=== PATIENT | female | born 1960 | race Caucasian/White ===

== ENCOUNTER 2017-07-19 12:53 | Emergency (ER) | payer OTHER ==
[~2017-07-19] VITALS: Ht 167.6 cm; Wt 74.8 kg
[~2017-07-19 12:53] MED LIST: CELEXA40 MG; METFORMIN HCL500 MG PO; NAPROSYN500 MG PO; NORCO 5-325 TA1 EACH PO; PERCOCET 5-3251 EACH PO; [UNRECOGNIZED DRUG - REMARK]
[2017-07-19] MEDS ORDERED: NORCO 5-325 TA1 EACH PO (13:27)
[2017-07-19 14:38] VITALS: BP 129/93
== END 2017-07-19 14:38 | disposition home or self-care (01) ==
LOC: ER 12:53
DX: M25.551 Pain in right hip (principal); M25.552 Pain in left hip; M54.5 Low back pain; E11.9 Type 2 diabetes mellitus without complications; F17.210 Nicotine dependence, cigarettes, uncomplicated; Z96.643 Presence of artificial hip joint, bilateral; W18.39XA Other fall on same level, initial encounter; Y93.89 Activity, other specified; Y92.89 Other specified places as the place of occurrence of the external cause; Y99.8 Other external cause status

== ENCOUNTER 2021-03-27 18:54 | Emergency (ER) | payer OTHER ==
[~2021-03-27] VITALS: Ht 165.1 cm; Wt 78.5 kg
[2021-03-27 19:02] VITALS: BP 118/83
[2021-03-27] MEDS ORDERED: PREDNISONE 10 M10 M1 PO (19:21)
== END 2021-03-27 19:40 | disposition home or self-care (01) ==
LOC: ER 18:54
DX: L23.7 Allergic contact dermatitis due to plants, except food (principal); F17.210 Nicotine dependence, cigarettes, uncomplicated; E11.9 Type 2 diabetes mellitus without complications; Z96.643 Presence of artificial hip joint, bilateral

== ENCOUNTER 2021-05-28 12:45 | Emergency (ER) | payer OTHER ==
[~2021-05-28] VITALS: Ht 167.6 cm; Wt 77.1 kg
[~2021-05-28 12:45] MED LIST changes: +PREDNISONE 10 M10 M1 PO
[2021-05-28 12:58] VITALS: BP 139/86
== END 2021-05-28 13:55 | disposition home or self-care (01) ==
LOC: ER 12:45
DX: U07.1 COVID-19 (principal); E11.9 Type 2 diabetes mellitus without complications; F17.210 Nicotine dependence, cigarettes, uncomplicated; Z79.899 Other long term (current) drug therapy